=== PATIENT | female | born 1980 | race Caucasian/White ===

== ENCOUNTER 2017-02-20 15:24 | Inpatient (IN) | payer OTHER ==
[~2017-02-20] VITALS: Ht 157.5 cm; Wt 113.6 kg
[~2017-02-20 15:24] MED LIST: AZIT250T94 PO
[2017-02-20] MEDS ORDERED: DEXTROSE 5%-LR 1,000 ML IV SCH (16:00)
[2017-02-20 17:04] VITALS: Ht 157.5 cm; Wt 113.6 kg
[2017-02-20 17:05] VITALS: BP 132/71; PULSE 85; RESP 18
--- NOTE | 2017-02-20 20:32 | PN ---
Date/Time of Note Date/Time of Note DATE: 02/20/17 TIME: 19:56 OB Subjective Subjective Subjective 36 yo P2 @ 34 wks 5days presents from NST w variable decels on FHT. 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 Patient had h/o PT ctx this and has been disability on pelvic rest. 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 SH- former smoker; quit 07/2016 has also used marijuiana in the past OB Objective Objective Objective VS: 132/71, 99.3, 85.1, 18 Abdomen- gravid, n/t SVE-deferred FHT-130's; Cat, pos accel; now Cat I, previously some variable decels, non- repetetive [place]- rare ctx HEENT: WNL Abdomen: WNL Membranes: Intact Heart Rate: 130's Accelerations: Accelerations Present Decelerations: Variable Decelerations Contractions on Admission: >10 Minutes Apart OB Assessment/Plan Other Assessment: 36 yo P2 @ 34 wks 5 days, w some occasional variable decels and h/o prior child w IUGR and possible syndrome (form of dwarfism), 2 prior c/d, for BTL with next c/d - reassuring status Other plan: Will observe on 2 NE overnight BPP and EFW ordered If FHT is Cat I overnight, patient's OB provider may consider dishcarge in the morning STEW AYERS MD February 20, 2017 20:32
--- NOTE | 2017-02-20 20:54 | RADRPT ---
PROCEDURE: US OB. CLINICAL INDICATION: Size and dates , pain TECHNIQUE: Multiple sonographic images of the pelvis and gravid uterus were obtained. The images were reviewed on a PACS workstation. COMPARISON: No prior studies are available for comparison. FINDINGS: There is a single viable intrauterine gestation. Cardiac activity is present with 143 beats per min elem. There is a vertex presentation. The placenta is anterior. There is no evidence for an abruption or placenta previa. There is a normal amount of amniotic fluid with an EMIL = 13.1 cm. Measurements were made in order to determine age. The results are as follows: BPD =8.6 cm HC =31.4 cm AC =32 cm FL =6.6 cm Estimated gestational age of approximately 34 weeks and 6 days based on ultrasound measurements. Clinical age: 34 weeks and 5 days. The estimated date of delivery is 03/28/17, based on ultrasound measurements. The EFW = 2616 g, 60%, based on LMP age. RPTAT: AA IMPRESSION: Single viable intrauterine gestation of approximately 34 weeks and 6 days based on ultrasound measu rements. .Max Min MD, MD Date Time Electronically viewed and signed by .Max Min MD, MD on 02/20/2017 20:54 .S/
--- NOTE | 2017-02-20 20:56 | RADRPT ---
PROCEDURE: US OB biophysical profile. CLINICAL INDICATION: decreased movements , labor TECHNIQUE: Multiple sonographic images of the pelvis were obtained. The images were reviewed on a PACS workstation. COMPARISON: No prior studies are available for comparison. FINDINGS: There is a single viable intrauterine gestation. Cardiac activity is present with 139 beats per min brenda. There is a vertex presentation. The placenta is anterior. There is no evidence for an abruption or placenta previa. There is a normal amount of amniotic fluid with an EMIL = 13.1 cm. Biophysical profile: movement 2/2 tone 2/2. breathing 2/2 EMIL 2/2 Total 05/20 RPTAT: AA . IMPRESSION: Normal biophysical profile. . .Max Min MD, Date Time Electronically viewed and signed by .Max Min MD, MD on 02/20/2017 20:55 .S/
[2017-02-20] MEDS ORDERED: LACTATED RINGER'S 1,000 ML IV PRN (22:00)
[2017-02-21] MEDS ORDERED: MULTIVIT/MIN/FOLATE/IRON/PREN TAB PO SCH (09:00)
--- NOTE | 2017-02-21 12:15 | NSTRPT ---
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 Daugherty reviewed strip and recommends patient go to OB Triage for extended monitori ng and IV hydration now. Dr. García called and informed of Dr. Daugherty's recommendations. Orders recei hector to send pt to OB Triage now for extended monitoring and D5LR IV hydration. Report called norma Carlin RN OB Triage. [id number] explained to pt, pt verbalizes understanding and denies questions. Discussed kick counts, follow-up NST/EMIL appointment given. Pt to OB Triage now. Electronically Signed By E-Signature: with User ID: [id number]
--- NOTE | 2017-02-21 17:18 | DS ---
Date/Time of Note Date/Time of Note DATE: 02/21/17 TIME: 17:13 Discharge Summary Admission/Discharge Info Admit Date/Time February 20, 2017 at 21:30 Discharge Date/Time February 21, 2017 at 1800 Final Diagnosis 34 weeks had variable deceleration at NST clinic referred to the hospital for extended observation there has been no more decelerations which she has been in the hospital seen by the perinatologist today recommended discharge home to make appointment with perinatology clinic on Friday Patient Condition: Good Consults Perinatology consult Procedures Observation Hx of Present Illness 34 weeks 1 episode of variable decelerations on heart patient has made appointment with perinatology to be seen on Friday Hospital Course Satisfactory Home Meds Active Scripts Azithromycin* (Zithromax*) 250 Mg Tablet, 250 MG PO .SONIACK DIRECTED, #6 TAB TAKE 500 MG (2 TABS) THE FIRST DAY THEN 250 MG (1 TAB) DAYS 2-5 Prov:MARGY CHAMBERS PA-C 11/26/15 Follow-up Plan Patient has appointment with perinatology clinic on Friday JAY HAYS MD February 21, 2017 17:18
== END 2017-02-21 17:30 | disposition home or self-care (01) | DRG 782 ==
LOC: OBT 15:24 → L-D 15:25 → OBG 21:30 → OBT 21:30
PROVIDERS: ADMIT Obstetrics & Gynecology; ATTEND Obstetrics & Gynecology
DX: O76 Abnormality in fetal heart rate and rhythm complicating labor and delivery (principal); Z3A.34 34 weeks gestation of pregnancy
CPT/HCPCS: 36415; 76815; 76818; 96360; 96361; G0463; J7121

== ENCOUNTER 2017-03-06 11:45 | Inpatient (IN) | payer OTHER ==
[~2017-03-06] VITALS: Ht 157.5 cm; Wt 115.4 kg
[2017-03-06 11:50] VITALS: Ht 157.5 cm; Wt 115.4 kg
[2017-03-06] MEDS ORDERED: LIDOCAINE 1% (MPF) 30 ML INJ INJ PRN (12:00)
[2017-03-06] MEDS ORDERED: CARBOPROST 250 MCG INJ IM PRN (12:00)
[2017-03-06] MEDS ORDERED: OXYTOCIN 30 UNITS/LR 500 ML IV PRN (12:00)
[2017-03-06] MEDS ORDERED: OXYTOCIN 30 UNITS/LR 500 ML IV SCH ×2 (12:00)
[2017-03-06] MEDS ORDERED: CEFAZOLIN 2 GM/50 ML (PMX) 50 ML IVPB ONE (12:00)
[2017-03-06] MEDS ORDERED: MISOPROSTOL 200 MCG TAB PR PRN (12:00)
[2017-03-06] MEDS ORDERED: METHYLERGONOVINE 0.2 MG INJ IM PRN (12:00)
[2017-03-06 12:02] VITALS: BP 134/69; RESP 20
[2017-03-06] MEDS ORDERED: PREN-93 PO (12:16)
[2017-03-06] MEDS ORDERED: FOLI1POW MC (12:17)
[2017-03-06 12:34] LABS: ADD SCAN DIFF NO
[2017-03-06] MEDS: LACTATED RINGER'S 1,000 ML IV SCH ×2 (12:42→16:26)
[2017-03-06 12:57] LABS: BASOPHILS % 0.2 % (0.0-2.0); EOSINOPHILS # 0.1 10^3/ul (0.0-0.5); EOSINOPHILS % 0.6 % (0.0-7.0); HEMOGLOBIN 10.8 g/dl (12.0-16.0); LYMPHOCYTES # 2.1 10^3/ul (0.8-2.9); MEAN CORPUSCULAR HEMOGLOBIN 28.4 pg (29.0-33.0); MEAN CORPUSCULAR HGB CONC 32.7 g/dl (32.0-37.0); MEAN CORPUSCULAR VOLUME 86.8 fl (82.0-101.0); MEAN PLATELET VOLUME 10.1 fl (7.4-10.4); MONOCYTE # 0.7 10^3/ul (0.3-0.9); MONOCYTES % 5.5 % (0.0-11.0); NEUTROPHIL # 9.2 10^3/ul (1.6-7.5); PLATELET COUNT 243 10^3/UL (140-415); RED CELL DISTRIBUTION WIDTH 14.4 % (11.5-14.5); WHITE BLOOD COUNT 12.1 10^3/ul (4.8-10.8)
[2017-03-06 13:02] LABS: INR 1.01; PROTIME 13.3 Sec (12.2-14.2)
[2017-03-06 13:03] LABS: PARTIAL THROMBOPLASTIN TIME 29.6 Sec (25.0-35.0)
--- NOTE | 2017-03-06 18:52 | QN ---
Documentation Comment 36 y/o , 36 5/7previous c section had one episode of 3minuts variable decal in nst office raftered for extended monitoring ,since admission to triage there has been no deceleration will continue monitoring JAY HAYS MD March 06, 2017 18:52
[2017-03-07] MEDS: LACTATED RINGER'S 1,000 ML IV SCH ×3 (01:33→17:56)
--- NOTE | 2017-03-07 10:24 | HP ---
Date/Time of Note Date/Time of Note DATE: 03/07/17 TIME: 10:10 OB - History Hx of Present Free Text/Dictation This is a 36 years old with 36 weeks and 6 days history of 2 previous section transferred from NST unit to the hospital for extended observation due to prolonged deceleration while baby being monitored at NST office, since admission to the hospital for heart tracing has been category 1 the whole time, telephone consultation with perinatologist recommended admission to the hospital on continuous monitoring. Chief Complaint: heart deceleration during the NST at perinatology office Estimated Due Date: Mar 29, 2017 : 3 Para: 2 Care: Good Care Ultrasounds: Normal mid trimester US Obstetrical Complications: None, Other (One occasion of heart deceleration in the NST office) Past Family/Social History * Past Medical, Surgical, Family and Obstetric Histories reviewed from chart. Rubella: immune RPR/VDRL: Negative GBS Status: Unknown HBsAG: Negative OB Admission Exam Vital Signs Vital Signs Vital Signs Date Time Temp Pulse Resp B/P Pulse Ox O2 Delivery O2 Flow Rate FiO2 03/06/17 12:02 98.9 20 134/69 Room Air Physical Exam HEENT: WNL Heart: Rhythm Normal Lungs: Clear, Equal Abdomen: WNL Extremities: Normal Reflexes: Normal Cervical Dilatation: None Effacement: 0% Membranes: Intact Accelerations: Accelerations Present Decelerations: Variable Decelerations Varibility: Moderate Intensity: Mild Last 72 hours Lab Results CBC & BMP 03/06/17 12:22 OB Assessment/Plan Reason for admission: other (Expecting management, continues monitoring) Plan: Expectant Management, Other (Continues monitor) Induction Method: other JAY HAYS MD March 07, 2017 10:21
[2017-03-08] MEDS: LACTATED RINGER'S 1,000 ML IV SCH ×3 (01:03→17:33)
--- NOTE | 2017-03-08 12:15 | RADRPT ---
PROCEDURE: OB ultrasound for biophysical profile CLINICAL INDICATION: . TECHNIQUE: Multiple sonographic images of the pelvis were obtained. Transabdominal view of the gr avid uterus are available for review. The images were reviewed on a PACS workstation. COMPARISON: 03/06/2017 FINDINGS: breathing movement = 2/2 tone = 2/2 motion = 2/2 EMIL = 2/2 EMIL = 17.5 cm Single live intrauterine with cardiac activity. Heart rate equals 157 bpm. IMPRESSION: 1. Single viable intrauterine gestation. 2. Biophysical profile = 8/8. 3. EMIL = 17.5 cm. RPTAT: QQ .Nolan Fung MD, Date Time Electronically viewed and signed by .Nolan Fung MD, on 03/08/2017 12:14 .M/
[2017-03-09] MEDS: LACTATED RINGER'S 1,000 ML IV SCH ×3 (00:31→16:34)
[2017-03-09] MEDS: MULTIVIT/MIN/FOLATE/IRON/PREN TAB PO SCH (09:32)
--- NOTE | 2017-03-09 17:10 | PN ---
Date/Time of Note Date/Time of Note DATE: 03/09/17 TIME: 17:00 OB Subjective Subjective Subjective Vital signs are stable afebrile, no heart deceleration since admission to the antepartum unit,today she is 37 weeks and 1 day perinatology consultation recommended observation with continuous heart monitoring, to deliver only if. heart tracing changes from category 1 to category 2 or 3. JAY HAYS MD March 09, 2017 17:10
[2017-03-10] MEDS: LACTATED RINGER'S 1,000 ML IV SCH ×3 (03:51→13:48)
[2017-03-10] MEDS: MULTIVIT/MIN/FOLATE/IRON/PREN TAB PO SCH (09:05)
[2017-03-10] MEDS ORDERED: CEFAZOLIN 2 GM/50 ML (PMX) 50 ML IV SCH (13:00)
[2017-03-10] MEDS ORDERED: METHYLERGONOVINE 0.2 MG INJ IM PRN ×2 (13:00→17:30)
[2017-03-10] MEDS ORDERED: MISOPROSTOL 200 MCG TAB PR PRN ×2 (13:00→17:30)
[2017-03-10] MEDS ORDERED: CARBOPROST 250 MCG INJ IM PRN ×2 (13:00→17:30)
[2017-03-10] MEDS ORDERED: OXYTOCIN 30 UNITS/LR 500 ML IV PRN ×2 (13:00→17:30)
[2017-03-10] MEDS ORDERED: OXYTOCIN 30 UNITS/LR 500 ML IV SCH (13:00)
[2017-03-10] MEDS ORDERED: ONDANSETRON 4 MG INJ ONE (13:23)
[2017-03-10] MEDS ORDERED: CITRIC ACID/NA CITRATE 30 ML CUP ONE (13:26)
[2017-03-10 13:31] LABS: ADD SCAN DIFF NO
[2017-03-10 13:33] LABS: BASOPHILS % 0.2 % (0.0-2.0); EOSINOPHILS # 0.1 10^3/ul (0.0-0.5); EOSINOPHILS % 0.8 % (0.0-7.0); HEMATOCRIT 34.9 % (37.0-47.0); HEMOGLOBIN 11.5 g/dl (12.0-16.0); LYMPHOCYTES # 2.2 10^3/ul (0.8-2.9); LYMPHOCYTES % 19.1 % (15.0-51.0); MEAN CORPUSCULAR HEMOGLOBIN 28.8 pg (29.0-33.0); MEAN CORPUSCULAR VOLUME 87.3 fl (82.0-101.0); MEAN PLATELET VOLUME 9.8 fl (7.4-10.4); MONOCYTE # 0.8 10^3/ul (0.3-0.9); MONOCYTES % 6.5 % (0.0-11.0); NEUTROPHIL # 8.5 10^3/ul (1.6-7.5); NEUTROPHILS % 72.5 % (39.0-77.0); PLATELET COUNT 241 10^3/UL (140-415); RED CELL DISTRIBUTION WIDTH 14.6 % (11.5-14.5); WHITE BLOOD COUNT 11.7 10^3/ul (4.8-10.8)
[2017-03-10] MEDS ORDERED: ONDANSETRON 4 MG INJ IV STA (13:34)
[2017-03-10 13:49] LABS: INR 0.95; PROTIME 12.7 Sec (12.2-14.2)
[2017-03-10] MEDS ORDERED: METOCLOPRAMIDE 10 MG INJ ONE (13:58)
[2017-03-10] MEDS ORDERED: METOCLOPRAMIDE 10 MG INJ IV ONE (14:00)
[2017-03-10] MEDS ORDERED: CITRIC ACID/SODIUM CITRATE 15 ML CUP PO ONE (14:00)
[2017-03-10] MEDS ORDERED: OXYTOCIN 10 UNIT INJ ONE (14:01)
[2017-03-10] MEDS ORDERED: PHENYLephrine (100 MCG/ML) 5ML SYG ONE (14:01)
[2017-03-10] MEDS ORDERED: KETOROLAC 30 MG INJ ONE (14:01)
[2017-03-10] MEDS ORDERED: morphine SULFATE/PF (10 MG/10 ML) INJ ONE (14:01)
[2017-03-10] MEDS ORDERED: DEXAMETHASONE 4 MG/ML 1 ML INJ ONE (14:01)
[2017-03-10] MEDS ORDERED: KETOROLAC 30 MG INJ IV PRN (16:00)
[2017-03-10] MEDS ORDERED: NALOXONE (0.4 MG/ML) INJ IV PRN (16:00)
[2017-03-10] MEDS ORDERED: morphine 4 MG/ML VIAL IV PRN (16:00)
[2017-03-10] MEDS ORDERED: DIPHENHYDRAMINE 50 MG INJ IV PRN (16:00)
[2017-03-10] MEDS ORDERED: ONDANSETRON 4 MG INJ IV PRN (16:00)
[2017-03-10] MEDS ORDERED: ACETAMINOPHEN 500 MG TAB PO PRN (16:00)
[2017-03-10] MEDS ORDERED: morphine 2 MG INJ IV PRN (16:00)
[2017-03-10] MEDS ORDERED: NALBUPHINE HCL (10 MG/1 ML) INJ IV PRN (16:00)
[2017-03-10] MEDS ORDERED: HYDROCODONE/APAP (5/325) TAB PO PRN (16:00)
[2017-03-10] MEDS ORDERED: HYDROmorphONE 1 MG/ML SYG IV PRN ×2 (16:00)
--- NOTE | 2017-03-10 16:58 | OPR ---
DATE OF OPERATION: 03/10/2017 PREOPERATIVE DIAGNOSES: 1. Intrauterine at 37 weeks and 2 days. 2. History of 2 previous sections. Has been admitted to the hospital due to nonreassuring heart tracing and variable deceleration at NST unit. Has been under continuous monitoring in the hospital. Recommended by Perinatology delivery in case of nonreassuring heart tracing, category 2 and 3 heart tracing on 03/10/2017. The patient requests for bilateral tubal ligation at the time of section. In labor. POSTOPERATIVE DIAGNOSES: 1. Intrauterine at 37 weeks and 2 days. 2. History of 2 previous sections. Has been admitted to the hospital due to nonreassuring heart tracing and variable deceleration at NST unit. Has been under continuous monitoring in the hospital. Recommended by Perinatology delivery in case of nonreassuring heart tracing, category 2 and 3 heart tracing on 03/10/2017. The patient requests for bilateral tubal ligation at the time of section. In labor. OPERATION PERFORMED: Repeat transverse low cervical section, bilateral tubal ligation. SURGEON: Jay García MD. BRUSH MAKER MACHINE: Dr. Cardenas. ANESTHESIA DR BULLOCK: ANESTHESIOLOGIST: Dr. Vasyl Del Valle. FINDINGS: Live baby boy, 9 and 9. Baby had cord around the ankle x2, tight. DETAILS OF THE PROCEDURE: Under satisfactory spinal anesthesia, the patient prepped and draped and placed in supine position, tilted to the left. Pfannenstiel incision was made. Old scar was removed. Incision carried through the subcutaneous tissue. Bleeders brought under control with electrocautery. Fascia incised to the length of the incision. Rectus muscle divided in midline. Peritoneum exposed, entered through a transverse incision. Exploration of abdomen: Gravid uterus, normal-appearing tubes and ovaries. Lower segment of the uterus seemed to be extremely thinned out to the level that the amniotic fluid was visible. The amniotic fluid only was from the abdominal cavity by the membrane and thinned out lower segment uterus. Bladder flap was developed. Transverse incision was made in the lower segment of the uterus. Amniotic sac ruptured. Clear amniotic fluid noted. Live baby boy was delivered from unengaged vertex with a nuchal cord around the baby's ankle x2. Nasal oropharyngeal suction was performed. Baby handed to the team for immediate attention. The patient received 20 units of Pitocin. Placenta delivered manually intact. Uterine cavity cleaned with wet sponge, and drainage established. Uterus closed in 2 layers using Monocryl #1 in continuous fashion, was reinforced with the same suture material. Bilateral tubal ligation performed by identifying the fimbria and the ampullary portion of the right fallopian tube. Suture material used #0 plain catgut was reinforced with the same suture material. That portion of the tube was excised. The cut end of the tube was cauterized, and the specimen submitted for the pathology. The same procedure performed for the opposite side. Peritoneal cavity irrigated with warm saline. Sponge, needle and instrument reported to be correct. Abdominal peritoneum closed with 2-0 chromic catgut continuously. Rectus muscle approximated with few interrupted 2-0 chromic catgut. Fascia closed with #1 PDS in a continuous fashion. Subcutaneous tissue approximated with 2-0 chromic catgut. Skin closed with wilmer. Estimated blood loss 600 mL. Urine bag contained 200 mL of clear urine. Patient tolerated procedure well, transferred to recovery room in a good condition. Dictated By: JAY ARANA/AMINATA Conf#: [id number] DID#: [id number]
[2017-03-10] MEDS ORDERED: ACETAMINOPHEN/CODEINE #3 TAB PO PRN ×2 (17:30)
[2017-03-10] MEDS ORDERED: CEFAZOLIN 1 GM/50 ML (PMX) 50 ML IVPB SCH ×3 (17:30→23:00)
[2017-03-10] MEDS ORDERED: LANOLIN 7 GM TUBE TOP PRN (17:30)
[2017-03-10] MEDS: IBUPROFEN 600 MG TAB PO SCH (18:00)
[2017-03-10 18:35] VITALS: BP 110/55; PULSE 69; RESP 17
[2017-03-10 19:40] VITALS: BP 106/59; PULSE 63; RESP 18
[2017-03-10] MEDS: OXYTOCIN 30 UNITS/LR 500 ML IV SCH (20:22)
[2017-03-10] MEDS: SENNA/DOCUSATE NA (8.6MG/50MG) TAB PO SCH (20:23)
[2017-03-11] VITALS: BP 107/56; PULSE 69; RESP 18
--- NOTE | 2017-03-11 00:56 | OPPN ---
Date/Time of Note Date/Time of Note DATE: 03/11/17 TIME: 00:56 Post-Anesthesia Notes Post-Anesthesia Note Last documented vital signs Vital Signs Date Time Temp Pulse Resp B/P Pulse Ox O2 Delivery O2 Flow Rate FiO2 03/10/17 19:40 97.7 63 18 106/59 Room Air Activity: WNL Respiratory function: WNL Cardiovascular function: WNL Mental status: Baseline Pain reasonably controlled: Yes Hydration appropriate: Yes Nausea/Vomiting absent: Yes NII SPRAGUE MD March 11, 2017 00:56
[2017-03-11] MEDS: OXYTOCIN 30 UNITS/LR 500 ML IV SCH ×7 (01:27→21:29)
[2017-03-11 05:03] VITALS: BP 112/60; PULSE 73; RESP 20
[2017-03-11] MEDS: IBUPROFEN 600 MG TAB PO SCH ×4 (06:00→18:24)
[2017-03-11 07:04] LABS: ADD SCAN DIFF NO
[2017-03-11 07:08] LABS: BASOPHILS % 0.2 % (0.0-2.0); EOSINOPHILS % 0.2 % (0.0-7.0); HEMOGLOBIN 10.6 g/dl (12.0-16.0); LYMPHOCYTES # 2.4 10^3/ul (0.8-2.9); LYMPHOCYTES % 15.3 % (15.0-51.0); MEAN CORPUSCULAR HGB CONC 32.1 g/dl (32.0-37.0); MEAN CORPUSCULAR VOLUME 87.3 fl (82.0-101.0); MEAN PLATELET VOLUME 9.6 fl (7.4-10.4); MONOCYTE # 0.9 10^3/ul (0.3-0.9); MONOCYTES % 5.8 % (0.0-11.0); NEUTROPHIL # 12.2 10^3/ul (1.6-7.5); NEUTROPHILS % 78.1 % (39.0-77.0); PLATELET COUNT 228 10^3/UL (140-415); RED BLOOD COUNT 3.78 10^6/ul (4.20-5.40); RED CELL DISTRIBUTION WIDTH 14.3 % (11.5-14.5); WHITE BLOOD COUNT 15.6 10^3/ul (4.8-10.8)
[2017-03-11 08:00] VITALS: BP 112/57; PULSE 66; RESP 20
[2017-03-11] MEDS: SENNA/DOCUSATE NA (8.6MG/50MG) TAB PO SCH ×2 (09:00→21:22)
--- NOTE | 2017-03-11 09:59 | PN ---
Date/Time of Note Date/Time of Note DATE: 03/11/17 TIME: 09:58 OB Subjective Subjective Subjective Post day 1 Afebrile vital signs are stable, abdomen soft incision dry bowel sounds present lochia moderate extremity normal ambulation encouraged. JAY HAYS MD March 11, 2017 09:59
[2017-03-11 12:02] VITALS: BP 113/60; PULSE 65; RESP 18
[2017-03-11 16:00] VITALS: BP 124/62; PULSE 68; RESP 18
[2017-03-11 20:20] VITALS: BP 121/68; PULSE 69; RESP 18
--- NOTE | 2017-03-11 21:37 | NSTRPT ---
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 Strip reviewed by Dr. Daugherty. Recomendation to Deliver. Report given to Dr. García. New orders received. Pt to L_D for delivery. Report given to Jany UGALDE arge Nurse. Explained to pt plan of care. Pt states understaniding. No further quetions asked at thi s time. Pt to L_D Electronically Signed By E-Signature: with User ID: [id number] Datetime: 03/03/2017 10:10 NST Information EGA: 36.2 Test Number: 4 Time on Monitor: 03/03/2017 10:31 Time off Monitor: 03/03/2017 11:51 NST Duration (Min): 80 Reason for NST: Other Reason for NST Other: histroy of Declan-Silver syndrome with previous Test and Monitor Explained: Monitor Explained; Test Explained; Verbalized Understanding Pulse: 82 Resp: 17 SBP: 131 DBP: 66 Patient States Movement: Present Contraction Frequency: none FHR Baseline : 130 Variability: Moderate 6-25bpm Accelerations: 15X15 Decelerations: None FHR Category: Category I NST Results: Reactive Comments: pt to U/S, EMIL 15.2cm, cephalic Hand-holding monitor due to excessive maternal adipose tissue.1154:Pt D/C home with PRE ter m labor precautions, discussed kick counts, F/U appt given, pt verbalizes understanding and de nies questions at this time. Datetime: 02/27/2017 10:47 NST Information EGA: 35.5 NST Duration (Min): 35 Datetime: 02/24/2017 10:50 NST Information EGA: 35.2 NST Duration (Min): 44 Datetime: 02/20/2017 13:49 NST Information EGA: 34.5 Datetime: 02/20/2017 13:44 NST Duration (Min): 37
[2017-03-11] MEDS: OXYCODONE/ACETAMINOPHEN (5/325) TAB PO PRN (22:24)
[2017-03-12] MEDS: IBUPROFEN 600 MG TAB PO SCH ×5 (00:01→23:50)
[2017-03-12] MEDS: OXYTOCIN 30 UNITS/LR 500 ML IV SCH ×4 (00:59→13:29)
[2017-03-12 04:00] VITALS: BP 121/65; PULSE 71; RESP 18
[2017-03-12] MEDS: OXYCODONE/ACETAMINOPHEN (5/325) TAB PO PRN ×4 (05:08→23:49)
[2017-03-12 09:05] VITALS: BP 127/60; PULSE 63; RESP 18
[2017-03-12] MEDS: SENNA/DOCUSATE NA (8.6MG/50MG) TAB PO SCH ×2 (09:07→20:10)
[2017-03-12 16:00] VITALS: BP 135/70; PULSE 67; RESP 18
--- NOTE | 2017-03-12 16:59 | PN ---
Date/Time of Note Date/Time of Note DATE: 03/12/17 TIME: 16:57 OB Subjective Subjective Subjective Post day 2 Afebrile vital signs stable abdomen soft good bowel sounds incision dry uterus firm lochia moderate no bowel movement enema ordered extremity normal JAY HAYS MD March 12, 2017 16:59
[2017-03-12] MEDS ORDERED: NA PHOSPHATE/BIPHOS 133 ML ENEMA PR ONE (17:00)
[2017-03-12 20:00] VITALS: BP 124/64; PULSE 64; RESP 18
--- NOTE | 2017-03-12 23:14 | NSTRPT ---
NST Information Datetime Report Generated by CPN: 03/12/2017 23:14 Datetime: 03/03/2017 10:10 Electronically Signed By E-Signature: with User ID: [id number]
[2017-03-13 04:00] VITALS: BP 118/54; PULSE 64; RESP 18
[2017-03-13] MEDS: IBUPROFEN 600 MG TAB PO SCH ×3 (06:28→17:45)
[2017-03-13] MEDS: OXYCODONE/ACETAMINOPHEN (5/325) TAB PO PRN ×4 (06:29→22:15)
[2017-03-13 08:00] VITALS: BP 108/50; PULSE 65; RESP 18
[2017-03-13] MEDS ORDERED: DIPHTH/TET/ACEL PERTUSS (ADULT) 0.5 ML VIAL IM* ONE (09:00)
[2017-03-13] MEDS: SENNA/DOCUSATE NA (8.6MG/50MG) TAB PO SCH ×2 (09:51→21:25)
[2017-03-13 16:00] VITALS: BP 117/58; PULSE 68; RESP 18
--- NOTE | 2017-03-13 17:54 | PN ---
Date/Time of Note Date/Time of Note DATE: 03/13/17 TIME: 17:52 OB Subjective Subjective Subjective Post day 3 Vital signs stable afebrile abdomen soft incision uterus firm lochia moderate good bowel sounds patient had bowel movement extremity normal plan of discharge JAY St MD Mar 13, 2017 17:54
[2017-03-13 20:10] VITALS: BP 146/76; PULSE 72; RESP 19
[2017-03-14] MEDS: IBUPROFEN 600 MG TAB PO SCH ×3 (00:13→12:08)
[2017-03-14] MEDS ORDERED: DIPHENHYDRAMINE 50 MG CAP PO ONE (00:30)
[2017-03-14 04:22] VITALS: BP 116/58; PULSE 64; RESP 19
[2017-03-14] MEDS: SENNA/DOCUSATE NA (8.6MG/50MG) TAB PO SCH (09:13)
--- NOTE | 2017-03-14 09:45 | PD.PPDC ---
MATERIALS HANDLER Discharge Instruction Condition Patient Condition: Good Diet Diet: Resume Regular Diet Activity/Restrictions Restrictions: No Exercising No Lifting No Driving No Sexual Activity Nothing in the Vagina No [place] No Tampons, douche Wound/Drain Care Instructions Wound/Drain Care Instructions: Remove Steri Strips in 1 week Follow-up Follow-up with Physician: 4, Day/Days Provider Information: Post wound care instructions given recommended patient to make an appointment with the clinic to discontinue wilmer on Friday, March 17, 2017. Return to clinic for HARP REPAIRER Instructions: Fever greater than 101 Chills Worsening abdominal pain Excessive Vaginal Bleeding More than 2 pads per hour Unable to tolerate diet OB Instructions: Breast Tenderness Depression Blurried Vision Headache Surgical Instructions: Incisional Drainage Incisional Redness Comment: Due to abdominal obesity care of the incision explained to the patient she was provided with hydrogen peroxide Betadine and Telfa recommended to make appointment with the clinic in 3 days to discontinue wilmer JAY HAYS MD Mar 14, 2017 09:45
--- NOTE | 2017-03-14 09:51 | DS ---
Date/Time of Note Date/Time of Note DATE: 03/14/17 TIME: 09:47 Discharge Summary Admission/Discharge Info Admit Date/Time March 06, 2017 at 11:45 Discharge Date/Time March 14, 2017 at 0 945 Final Diagnosis Post repeat at 37 weeks in labor Patient Condition: Good Procedures Repeat bilateral tubal ligation Hx of Present Illness at 37 weeks plus gestation history of previous sections request for bilateral tubal ligation at the time of section Hospital Course Satisfactory uneventful Home Meds Reported Medications Folic Acid (Folic Acid) 1 Gm Powder, 1 GM MC 03/06/17 Vit No.124/Iron/FA ( Vitamin Tablet) 1 Each Tablet, 1 EACH PO, TAB 03/06/17 Follow-up Plan Post wound care explained to the patient recommended to make appointment to be seen at the clinic in 3 days to discontinue wilmer. Primary Care Provider [facility] Time spent on discharge: > 30 minutes JAY HAYS MD Mar 14, 2017 09:51
[2017-03-14] MEDS ORDERED: DIPHTH/TET/ACEL PERTUSS (ADULT) 0.5 ML VIAL IM* ONE (10:00)
[2017-03-14] MEDS ORDERED: POVIDONE IODINE 10% 28.4 GM OINT TOP ONE (12:30)
[2017-03-14] MEDS ORDERED: HYDROGEN PEROXIDE 118 ML TOP ONE (12:30)
== END 2017-03-14 16:10 | disposition home or self-care (01) | DRG 766 ==
LOC: L-D 11:45 → OBG 03-07 10:32 → L-D 03-10 12:50 → PP1 03-10 18:41 → EDSTATUS 03-29 11:41
PROVIDERS: ADMIT Obstetrics & Gynecology; ATTEND Obstetrics & Gynecology
PROC: 0UB70ZZ Excision of Bilateral Fallopian Tubes, Open Approach (ICD-10-PCS; 2017-03-10)
PROC: 10D00Z1 Extraction of Products of Conception, Low, Open Approach (ICD-10-PCS; principal; 2017-03-10 14:00)
DX: O76 Abnormality in fetal heart rate and rhythm complicating labor and delivery (principal); O34.211 Maternal care for low transverse scar from previous cesarean delivery; Z37.0 Single live birth; Z3A.37 37 weeks gestation of pregnancy
CPT/HCPCS: 76818; 85025; 85610; 85730; 86592; 86850; 86900; 86901; 87340; 88302; 90715; 94760; 99464; J0690; J1100; J1885; J2274; J2370; J2405; J2590; J2765; J7120